=== PATIENT | male | born 1985 | race Caucasian/White ===

== ENCOUNTER 2017-01-06 13:58 | Outpatient (RCR) | payer OTHER ==
[~2017-01-06 13:58] MED LIST changes: -FLOMAX 0.40.4 MG/CAP PO; -PERCOCET 325 MG1 TA2 PO; -PHENERGAN 25 TA25 MG PO
[2017-03-09] MEDS ORDERED: FLOMAX 0.40.4 MG/CAP PO (15:22)
[2017-03-09] MEDS ORDERED: PERCOCET 325 MG1 TA2 PO (15:22)
[2017-03-09] MEDS ORDERED: PHENERGAN 25 TA25 MG PO (15:22)
== END 2017-03-14 13:57 ==
LOC: WSOH 13:58
DX: S61.210A Laceration without foreign body of right index finger without damage to nail, initial encounter (principal); W26.0XXA Contact with knife, initial encounter; Y99.0 Civilian activity done for income or pay

== ENCOUNTER → 2017-01-06 | Outpatient (REF) ==
[~2017-01-06] MED LIST: BUSPAR10 MG PO; FLEXERIL 1010 MG/TAB PO; FLOMAX 0.40.4 MG/CAP PO; NO HOME MEDICATIONS; NORCO 325 MG-7.1 TAB PO; PERCOCET 325 MG1 TA2 PO; PHENERGAN 25 TA25 MG PO; SEROQUEL200 MG PO; [UNRECOGNIZED DRUG - OTHER] PO
== END ==
LOC: WSOH 14:00
DX: Z01.83 Encounter for blood typing (principal)

== ENCOUNTER 2017-03-09 12:14 | Emergency (ER) | payer SELFPAY ==
[~2017-03-09] VITALS: Ht 180.3 cm; Wt 104.5 kg
[2017-03-09 12:19] VITALS: TEMP 97.6
[2017-03-09 12:48] LABS: BASO % 0.4 % (0.0-2.0); EOS # 0.5 (0.0-0.7); EOS % 4.8 % (0-4.0); GRAN # 4.9 (1.4-6.5); GRAN % 52.4 % (42.2-75.2); HEMATOCRIT 46.9 % (42.0-52.0); HEMOGLOBIN 15.7 g/dl (13.5-18.0); LYMPH # 3.2 (1.2-3.4); LYMPH % 34.7 % (20.0-51.0); MEAN CELL VOLUME 86 fl (80.0-100.0); MEAN CORPUSCULAR HEMOGLOBIN 29 pg (27.0-31.0); MEAN CORPUSCULAR HGB CONC 34 g/dl (33.0-37.0); MEAN PLATELET VOLUME 12.2 fl (7.4-10.4); MONO # 0.7 (0.1-0.6); MONO % 7.4 % (1.7-9.3); PLATELET COUNT 183 K/mm3 (130-400); RED BLOOD COUNT 5.43 M/mm3 (4.20-5.60); REDCELL DISTRIBUTION WIDTH-CV 13.5 % (11.5-14.5); WHITE BLOOD COUNT 9.4 K/mm3 (4.8-10.8)
[2017-03-09 13:09] LABS: ALANINE AMINOTRANSFERASE 48 U/L (21-72); ALBUMIN 4.7 gm/dL (3.5-5.0); ALKALINE PHOSPHATASE 86 U/L (50-136); ANION GAP 13 mmol/L (7-16); BILIRUBIN,TOTAL 0.8 mg/dL (0.0-1.0); BLOOD UREA NITROGEN 12 mg/dL (9-20); CALCIUM 9.6 mg/dL (8.4-10.2); CARBON DIOXIDE 25 mmol/L (22-30); CHLORIDE 104 mmol/L (98-107); CREATININE, serum 1.09 mg/dL (0.66-1.25); GLUCOSE 96 mg/dL (74-106); LIPASE 139 U/L (23-300); POTASSIUM 3.9 mmol/L (3.4-5.0); SODIUM 141 mmol/L (137-145); TOTAL PROTEIN 7.9 gm/dL (6.4-8.2)
[2017-03-09 13:12] LABS: C-REACTIVE PROTEIN < 0.5 mg/dL (0.0-0.9)
[2017-03-09 14:09] VITALS: BP 124/75
[2017-03-09] MEDS ORDERED: PHENERGAN 25 TA25 MG PO (15:22)
[2017-03-09] MEDS ORDERED: FLOMAX 0.40.4 MG/CAP PO (15:22)
[2017-03-09] MEDS ORDERED: PERCOCET 325 MG1 TA2 PO (15:22)
[2017-03-09 17:26] VITALS: PULSE 54
== END 2017-03-09 17:29 | disposition home or self-care (01) ==
LOC: COL.ER 12:14
PROVIDERS: Physician Assistant
DX: N13.2 Hydronephrosis with renal and ureteral calculous obstruction (principal); M87.851 Other osteonecrosis, right femur; F17.210 Nicotine dependence, cigarettes, uncomplicated
CPT/HCPCS: J1170; J2060; J2405; J2550; J7030; J7040

== ENCOUNTER → 2017-04-03 | Outpatient (CLI) | payer SELFPAY ==
[~2017-04-03] MED LIST changes: +FLOMAX 0.40.4 MG/CAP PO; +PERCOCET 325 MG1 TA2 PO; +PHENERGAN 25 TA25 MG PO
== END ==
LOC: COL.RAD 03-27 11:00
DX: M25.551 Pain in right hip (principal)
CPT/HCPCS: J3301; Q9967